=== PATIENT | male | born 1965 | race American Indian/Alaskan Native ===

== ENCOUNTER 2023-05-24 09:44 | Emergency (ER) | payer MEDICAID, SELFPAY ==
[2023-05-24 09:50] VITALS: BP 187/131; PULSE 52; RESP 16; TEMP 36.8; O2SAT 100
--- NOTE | 2023-05-24 10:03 | ED.GENADUL_ITS ---
Discharge Plan Disposition Patient Disposition: Home Discharge Details Clinical Impression: Dermatitis, Skin cancer of face, Elevated blood pressure reading Primary Care Provider: Unknown,Unknown ED Provider: Carla Jacome Home Meds and New Rx's Prescriptions: New triamcinolone acetonide 0.1 % cream 1 applic topical BID Qty: 30 1RF Rx Instructions: apply to neck and ear lobes twice daily Discharge Instructions Instructions: Dermatitis (ED) Additional Instructions: You have been referred for a primary care physician to establish care in this area. The rash on your ears and neck seems consistent with dermatitis. Apply the prescription cream twice daily. Your blood pressure is elevated in the emergency department. You need follow-up with primary care provider to recheck your blood pressure and get started on medication if necessary. Your primary care provider will help coordinate your skin cancer treatment. Discharge Data Discharge Date/Time-TO BE ENTERED AT DEPARTURE: 05/24/23 10:25 Discharge Physician: Carla Jacome Medical Decision Making Emergent evaluation of rash. Initial differential includes dermatitis, malignancy, less likely allergic reaction. Overlying rash seems most consistent with dermatitis or psoriasis. Will prescribe topical steroids for this. He was provided a printed prescription he is noted to have asymptomatic hypertension. He reports that he does not have a diagnosis of hypertension and does not take medication for this. He is otherwise asymptomatic. There is no indication for emergent lowering of his blood pressure at this time. I have placed a referral for primary care provider to establish care in this area. Patient was informed about the importance of following up with primary care in the area for resumption of treatment of noted skin cancer. Medical Records Medical records reviewed: Yes I reviewed the patient's medical records. HPI General Date/Time Provider Initiated Documentation: 05/24/23 09:46 . Limitations to Documentation: no limitations . Information obtained by: patient and family . HPI Narrative: 58-year-old gentleman with past medical history of skin cancer presents for evaluation of rash and ear pain. Reports that he has had ear pain bilaterally for the last 10 years. Is associated with redness and skin changes of the ear. reports that this has been worsening over the last 3 months. He also has intermittent rash of the neck area. He has been evaluated for both of these things in the past. He was told it was dermatitis. He recently moved to the area and has not established care. 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 He is not on chemotherapy or radiation. Because he moved he has not had surgery. Related Data Home Medications Medication Instructions Recorded Confirmed triamcinolone acetonide 0.1 % 1 applic topical BID #30 grams 05/24/23 topical cream Previous Rx's Medication Instructions Recorded triamcinolone acetonide 0.1 % 1 applic topical BID #30 grams 05/24/23 topical cream Allergies Allergy/AdvReac Type Severity Reaction Status Date / Time No Known Allergies Allergy Unverified 05/24/23 10:12 General Stated Complaint: EarProblem KERMIT: 3 Review of Systems All systems reviewed & are unremarkable except as noted in HPI and below PFSH All Active Problems Dermatitis (Acute) Skin cancer of face (Acute) Elevated blood pressure reading (Acute) Social History Smoking/Tobacco Use Status: Current every day Tobacco Type: cigarettes Tobacco: How many years used: 40 Smoking risk assessment performed?: Yes Alcohol Intake: current Alcohol Intake frequency: a few times a month Alcohol type: beer Drug use: Binges Substance use type: marijuana Housing: homeless Do you feel safe at home: Yes Do you feel safe in your relationship?: Yes Exam Const General: cooperative and healthy appearing HENMT Ears: hearing grossly normal bilaterally, external ears abnormal, TM's normal bilaterally and mastoids normal Neck Neck: no lymphadenopathy Resp Effort & Inspection: normal respiratory effort Cardio Rate: regular rate Rhythm: regular rhythm Skin Other: bilateral pinna with erythematous thickened skin thickened rash extending down neck and upper back, no excoriations, no hives, no abscess or induration left nare with lesion noted, consistent with prior diagnosis & biopsy or skin cancer Course Vital Signs Vital signs: Vital Signs Temperature 36.8 C 05/24/23 09:50 Pulse 52 L 05/24/23 09:50 Respiratory Rate 16 05/24/23 09:50 Blood Pressure 187/131 H 05/24/23 09:50 Pulse Oximetry 100 05/24/23 09:50 Temperature 36.8 C 05/24/23 09:50 Temperature Source Temporal Artery Scan 05/24/23 09:50 Pulse 52 L 05/24/23 09:50 Respiratory Rate 16 05/24/23 09:50 Blood Pressure 187/131 H 05/24/23 09:50 Blood Pressure Position Sitting 05/24/23 09:50 Pulse Oximetry 100 05/24/23 09:50 Oxygen Delivery Method Room Air 05/24/23 09:50 Oxygen Flow Rate 0 05/24/23 09:50
--- NOTE | 2023-05-24 10:07 | NUR.NOTE ---
Referral given to Care Management for needs PCP, skin cancer, establish care, needs surgery, WIN. Nursing Note:
[2023-05-24 10:16] VITALS: BP 205/118; PULSE 52; RESP 15; O2SAT 100
== END 2023-05-24 10:25 | disposition home or self-care (01) ==
LOC: ER 09:54
PROVIDERS: Emergency Provider Emergency Medicine
DX: L30.9 Dermatitis, unspecified (principal); R03.0 Elevated blood-pressure reading, without diagnosis of hypertension; C44.309 Unspecified malignant neoplasm of skin of other parts of face; F17.210 Nicotine dependence, cigarettes, uncomplicated
CPT/HCPCS: 99283

== ENCOUNTER → 2023-06-08 01:28 | Outpatient (CLI) | payer MEDICAID, SELFPAY ==
--- NOTE | 2023-06-08 07:15 | DI.CTLCSR_ITS ---
Exam(s) CT CHEST LUNG CANCER SCREEN EXAM: CT CHEST LUNG CANCER SCREEN CLINICAL HISTORY: Screening for lung cancer,current smoker, F17.210 TECHNIQUE: Imaging Protocol: Axial computed tomography images with coronal and sagittal reformatted images were created and reviewed. Low dose screening protocol. COMPARISON: No exams were available for comparison FINDINGS: Tracheobronchial tree: No bronchiectasis or mucus plugging.. Mediastinum and Cassy: No dominant adenopathy or fluid collection. Pulmonary parenchyma: No consolidation. [id number] emphysematous changes. Lung Nodules: 13 by 13 x 9 millimeter nodule posterior left lower lobe. 11 by 7.5 by 6 millimeter no dule lateral right upper lobe. Pleura: No effusion. No pneumothorax. Heart: The heart is not dilated. Mild coronary artery calcifications are seen. Aorta: Thoracic aorta non-dilated. Upper abdomen: Unremarkable. Bones: Degenerative changes lower thoracic spine. Soft Tissues: Unremarkable. IMPRESSION: 13 millimeter nodule left lower lobe. 8 millimeter average diameter nodule right upper lobe. PET-CT recommended for further evaluation. Lung RADS Cat 4A - Suspicious: Findings for which additional diagnostic testing and/or tissue samplin g recommended Lung-RADS 1.0 CATEGORIES: Category 0 - Prior chest CT exam(s) being located for comparison. Category 1 - Annual screening in 12 months. No nodules or definitely benign nodules. Category 2 - Annual screening in 12 months. Benign appearance. Nodules with low likelihood of becomin g active cancer. Category 3 - 6-month follow-up. Probably benign. Short-term follow-up suggested. Nodules with low lik elihood of becoming active cancer. Category 4A - 3-month follow-up and CT/PET if >8 mm in size. Suspicious finding. Findings which requi re additional testing. Category 4B - Findings which require additional testing and tissue sampling. Category 4X - Category 3 or 4 nodules with additional features or imaging findings that increases the suspicion of malignancy. Modifier S- Potentially clinically significant findings (non lung cancer) RADIATION DOSE DELIVERED: Total DLP DATA REPOSITORY: All CT scans at this facility are submitted to the National Radiology Data Registry (NRDR) Dose Index Registry (DIR) with the [employer] ([employer]). RADIATION OPTIMIZATION: All CT scans at this facility use at least one of these dose optimization te chniques: automated exposure control; mA and/or kV adjustment per patient size (includes targeted exa ms where dose is matched to clinical indication); or iterative reconstruction.
== END ==
PROVIDERS: Visit Provider Nurse Practitioner Family
DX: E11.9 Type 2 diabetes mellitus without complications (principal); F17.210 Nicotine dependence, cigarettes, uncomplicated; Z12.2 Encounter for screening for malignant neoplasm of respiratory organs; R91.8 Other nonspecific abnormal finding of lung field
CPT/HCPCS: 71271

== ENCOUNTER 2023-09-06 19:18 | Outpatient (REF) | payer MEDICAID, SELFPAY ==
[2023-09-06 18:10] LABS: COMMENT (LAB VIEW ONLY) 143.34 mg/dL; Microalb ug/mg Crea 14.6 ug/mg Cr
[2023-09-06 22:31] LABS: ALT 40 U/L (16-63); AST 36 U/L (15-37); Albumin 4.4 g/dL (3.4-5.0); Alkaline Phosphatase 93 U/L (46-116); Anion Gap 9.6 mmol/L (3-11); BUN 8 mg/dL (7-18); Bilirubin, Total 0.7 mg/dL (0.2-1.0); CO2 27.4 mmol/L (21.0-32.0); CREATININE 0.9 mg/dL (0.70-1.30); Calcium 10.4 mg/dL (8.5-10.1); Calculated LDL 173 mg/dL (<100); Chloride 100 mmol/L (98-107); Cholesterol 334 mg/dL (<200); Estimated GFR 98.38 (mL/min/1.73m2); Glucose 97 mg/dL (74-106); HDL Cholesterol 149 mg/dL (40-60); Potassium 4.7 mmol/L (3.5-5.1); Sodium 137 mmol/L (136-145); Total Protein 9.1 g/dL (6.4-8.2); Triglyceride 60 mg/dL (<150)
== END 2023-09-06 19:19 | disposition home or self-care (01) ==
LOC: LBN 19:18
PROVIDERS: PCP Nurse Practitioner Family; Visit Provider Nurse Practitioner Family
DX: I10 Essential (primary) hypertension (principal)
CPT/HCPCS: 80053; 80061; 82043; 82570

== ENCOUNTER → 2023-12-29 04:07 | Outpatient (CLI) | payer MEDICAID, SELFPAY ==
--- NOTE | 2023-12-29 07:30 | DI.US_ITS ---
Exam(s) US RENAL EXAM: US RENAL CLINICAL HISTORY: sx worsening since starting chemo,incomplete bladder emptying. TECHNIQUE: Keller scale, color and spectral Doppler were used. COMPARISON: No exams were available for comparison FINDINGS: Renal size in cm: Right: 12.1. Left: 10.8. Echogenicity: Normal. Hydronephrosis: No. Cyst or mass: No. Nephrolithiasis: No. Other findings: None. Bladder:There is diffuse thickening of the wall of the urinary bladder. Ureteral jets: Right: Visualized and unremarkable. Left: Visualized and unremarkable. Prevoid vol:121 cc Postvoid vol:24 cc Prostate: 31 cc Renal color flow: Symmetric and within normal limits. IMPRESSION: 1. Unremarkable renal ultrasound. 2. Diffuse thickening of the wall of the urinary bladder. This may be due to underdistention but cys titis chronic bladder outlet obstruction cannot be excluded. Neoplasm may also be considered. Callie sierra correlate clinically. DATA REPOSITORY:
== END ==
PROVIDERS: PCP Nurse Practitioner Family; Visit Provider Nurse Practitioner Family
DX: R33.9 Retention of urine, unspecified (principal)
CPT/HCPCS: 76770

== ENCOUNTER 2024-04-24 14:35 | Outpatient (CLI) | payer MEDICAID, SELFPAY ==
[2024-04-24 14:23] LABS: ALT 37 U/L (16-63); AST 42 U/L (15-37); Albumin 3.5 g/dL (3.4-5.0); Alkaline Phosphatase 91 U/L (46-116); BUN 9 mg/dL (7-18); Bilirubin, Total 0.42 mg/dL (0.2-1.0); CREATININE 0.9 mg/dL (0.70-1.30); Calcium 9.7 mg/dL (8.5-10.1); Calculated LDL 116 mg/dL (<100); Chloride 102 mmol/L (98-107); Cholesterol 261 mg/dL (<200); Estimated GFR 98.38 (mL/min/1.73m2); Glucose 92 mg/dL (74-106); HDL Cholesterol 122 mg/dL (40-60); Potassium 4.9 mmol/L (3.5-5.1); Sodium 137 mmol/L (136-145); Triglyceride 118 mg/dL (<150)
[2024-04-24 22:44] LABS: PSA, Diagnostic 0.7 ng/mL (<=3.5)
== END 2024-04-24 14:36 | disposition home or self-care (01) ==
LOC: LBO 14:35
PROVIDERS: PCP Nurse Practitioner Family; Visit Provider Nurse Practitioner Gerontology
DX: Z13.220 Encounter for screening for lipoid disorders (principal); F17.200 Nicotine dependence, unspecified, uncomplicated; R33.9 Retention of urine, unspecified
CPT/HCPCS: 36415; 80053; 80061; 84153

== ENCOUNTER 2025-06-01 09:02 | Outpatient (CLI) | payer MEDICAID, SELFPAY ==
[2025-06-01 14:56] LABS: ESR 8 mm/hr (0-20)
[2025-06-01 14:57] LABS: HCT 48.2 % (40.0-50.0); HGB 16.2 g/dL (13.5-17.5); MCH 29.7 pg (27.0-33.0); MCHC 33.6 % (32.0-36.0); MCV 88 fL (80-95); MPV 9.8 fL (8.0-11.0); Platelet Count 299 10^3/uL (130-400); RBC 5.45 10^6/uL (4.36-5.78); RDW 13.2 % (11.8-14.1); RDW-SD 42.9 fL; WBC 7.59 10^3/uL (4.4-10.8)
[2025-06-01 15:46] LABS: ALT 42 U/L (16-63); AST 45 U/L (15-37); Albumin 3.9 g/dL (3.4-5.0); Alkaline Phosphatase 96 U/L (46-116); Anion Gap 8.3 mmol/L (3-11); BUN 8 mg/dL (7-18); Bilirubin, Total 0.6 mg/dL (0.2-1.0); CO2 27.7 mmol/L (21.0-32.0); Calcium 9.7 mg/dL (8.5-10.1); Chloride 98 mmol/L (98-107); Estimated GFR 97.17 (mL/min/1.73m2); Glucose 99 mg/dL (74-106); Potassium 4.2 mmol/L (3.5-5.1); Sodium 134 mmol/L (136-145); Total Protein 8.4 g/dL (6.4-8.2); Vitamin B12 562 pg/mL (193-986)
[2025-06-01 17:37] LABS: C-Reactive Protein < 0.50 mg/dL (<or=0.5)
[2025-06-04 11:38] LABS: Lyme Ab w Rflx to Lyme Confirm Negative (Negative)
[2025-06-04 15:39] LABS: B. miyamotoi PCR Negative (Negative); Babesia divergens/MO-1 Negative (Negative); Ehrlichia muris eauclairensis Negative (Negative)
== END 2025-06-01 09:03 | disposition home or self-care (01) ==
PROVIDERS: PCP Nurse Practitioner Family; Visit Provider Nurse Practitioner Family
DX: M25.551 Pain in right hip (principal); M25.552 Pain in left hip
CPT/HCPCS: 36415; 80053; 85027; 85652; 87798; 82607; 86140; 86618

== ENCOUNTER 2025-06-06 01:23 | Outpatient (CLI) | payer MEDICAID, SELFPAY ==
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
== END 2025-06-06 01:43 ==
LOC: DI 01:23
PROVIDERS: PCP Nurse Practitioner Family; Visit Provider Nurse Practitioner Family
DX: M16.12 Unilateral primary osteoarthritis, left hip (principal)
CPT/HCPCS: 73521